=== PATIENT | male | born 1945 | race Two or more races ===

== ENCOUNTER → 2020-12-11 | Outpatient (CLI) | payer MEDICARE, MEDICAID ==
--- NOTE | 2020-12-12 09:02 | CARD ---
MR#: [id number] Date of Study: 12/11/2020 Ordering Physician: LOGAN SOTELO, Referring Physician: LOGAN SOTELO, Tech: Dorothea Read [facility] APPROVED REPORT EXAM: Two-dimensional and M-mode echocardiogram with Doppler and color Doppler. Other Information Quality : AverageHR: 71bpm INDICATION Cardiomyopathy Surgery/Intervention CABG: Date: 2017 Site: [facility] RISK FACTORS Diabetes 2D DIMENSIONS RVDd4.1 (2.9-3.5cm)Left Atrium(2D)3.7 (1.6-4.0cm) IVSd1.2 (0.7-1.1cm)Aortic Root(2D)3.8 (2.0-3.7cm) LVDd6.2 (3.9-5.9cm)LVOT Diameter2.0 (1.8-2.4cm) PWd1.2 (0.7-1.1cm)LVDs5.8 (2.5-4.0cm) FS (%) 6.3 %SV27.3 ml LVEF(%)13.9 (>50%) Aortic Valve AoV Peak Shyam.108.4cm/sAoV VTI23.0cm AO Peak GR.4.7mmHgLVOT Peak Shyam.92.9cm/s LVOT VTI 18.75cmAO Mean GR.3mmHg PRABHU (VMAX)2.51df3HWM (VTI)2.64cm2 AI P 1/2 Fmuu737ep Mitral Valve MV E Cmyowqef61.2cm/sMV DECEL [id number] MV A Pemvopvs773.1cm/sMV E Mean Gr.2mmHg MV UNN75ldN/A Ratio0.6 MVA (PHT)2.95cm2 TDI E/Lateral E'8.9E/Medial E'14.2 Pulmonary Valve PV Peak Noqoyfcj38.0cm/sPV Peak Grad.3mmHg Pulmonary Vein S1 Glqtfxnx73.8cm/sD2 Ezjwguwe87.8cm/s PVa [id number] LEFT VENTRICLE The Left Ventricle is mildly dilated. There is mild concentric left ventricular hypertrophy. The left ventricular systolic function is moderate to severely impaired. The Ejection Fraction is 30%. There is global hypokinesis of the left ventricle. Transmitral Doppler flow pattern is Grade I-abnormal rel axation pattern. RIGHT VENTRICLE The right ventricle is borderline dilated. There is normal right ventricular wall thickness. The righ t ventricular systolic function is normal. ATRIA The left atrium is mildly dilated. The right atrium is borderline dilated. The interatrial septum is intact with no evidence for an atrial septal defect or patent foramen ovale as noted on 2-D or Dopple r imaging. AORTIC VALVE The aortic valve is thickened but opens well. Doppler and Color Flow revealed trace aortic regurgitat ion. Calculated aortic valve area is 2.42 cm2 with maximum pressure gradient of 6 mmHg and mean press ure gradient of 3 mmHg. MITRAL VALVE The mitral valve is normal in structure and function. There is no evidence of mitral valve prolapse. There is no mitral valve stenosis. Doppler and Color-flow revealed trace mitral regurgitation. TRICUSPID VALVE The tricuspid valve is not well visualized. Doppler and Color Flow revealed trace tricuspid regurgita tion. There is no tricuspid valve stenosis. PULMONIC VALVE The pulmonic valve is not well visualized. Doppler and Color Flow revealed trace pulmonic valvular re gurgitation. GREAT VESSELS The aortic root is normal in size. The ascending aorta is Mildly dilated measuring 3.8 cm. The IVC is normal in size and collapses >50% with inspiration. PERICARDIAL EFFUSION There is no evidence of significant pericardial effusion. Critical Notification Critical Value: No <Conclusion> The left ventricular systolic function is moderate to severely impaired. The Ejection Fraction is 30%. Transmitral Doppler flow pattern is Grade I-abnormal relaxation pattern. Trace mitral regurgitation. Trace tricuspid regurgitation. There is no evidence of significant pericardial effusion. Signed by : Logan Sotelo, Electronically Approved : 12/12/2020 09:02:11
== END ==
LOC: ECHO 14:39
PROVIDERS: ATTEND Internal Medicine Cardiovascular Disease
DX: I25.5 Ischemic cardiomyopathy (principal); I51.7 Cardiomegaly
CPT/HCPCS: 93306

== ENCOUNTER 2021-02-25 09:06 | Observation (INO) | payer MEDICARE, MEDICAID ==
[~2021-02-25] VITALS: Ht 170.2 cm; Wt 104.5 kg
[~2021-02-25 09:06] MED LIST: IV RINGERS,LACTATED 1000ML 1,000 ML IV SCH
[2021-02-25 09:58] LABS: HEMATOCRIT 34.6 % (39.0-53.0); HEMOGLOBIN 11.9 g/dL (13.0-17.5); RED BLOOD COUNT 3.76 x10^6/uL (4.30-5.70); RED CELL DISTRIBUTION WIDTH 13.5 % (11.5-14.5); WHITE BLOOD COUNT 8.8 x10^3/uL (4.0-11.0)
[2021-02-25] MEDS ORDERED: VANCOMYCIN 1GM IVPB FOR OMNI 250 ML IRR ONE (10:00)
[2021-02-25] MEDS ORDERED: VANCOMYCIN 1GM IVPB FOR OMNI 250 ML IV ONE (10:00)
[2021-02-25 10:07] VITALS: BP 136/73
[2021-02-25 10:07] LABS: PROTHROMBIN TIME PATIENT 13.9 SEC (11.7-14.0)
[2021-02-25 10:28] LABS: CALCIUM 8.7 mg/dL (8.5-10.1); CREATININE 2.7 mg/dL (0.7-1.3); GFR 23.1; POTASSIUM 5.1 mmol/L (3.5-5.1)
[2021-02-25] MEDS ORDERED: VANCOMYCIN 1GM IVPB FOR OMNI 250 ML ONE (10:46)
[2021-02-25] MEDS ORDERED: LIDOCAINE 1% Multi-Dose 20 ML VIAL. ONE (10:48)
[2021-02-25] MEDS ORDERED: LIDOCAINE 2%/EPI 1:100,000 20 ML VIAL. ONE (10:48)
[2021-02-25] MEDS ORDERED: MIDAZOLAM HCL/PF 2 MG/2 ML VIAL. ONE ×2 (10:56)
[2021-02-25] MEDS ORDERED: fentaNYL PF VIAL 250 MCG/5 ML VIAL ONE (10:56)
[2021-02-25] MEDS ORDERED: KETAMINE HCL IN NACL, ISO-OSM 50 MG/5 ML SYRINGE ONE (10:56)
[2021-02-25] MEDS ORDERED: ASPI-630 PO (10:58)
[2021-02-25] MEDS ORDERED: IODIXANOL 320 MG/ML 100 ML VIAL. ONE (11:02)
[2021-02-25] MEDS ORDERED: CLOP75TA PO (11:07)
[2021-02-25] MEDS ORDERED: ATOR40TA59 PO (11:07)
[2021-02-25] MEDS ORDERED: CARV6.2511 PO (11:07)
[2021-02-25] MEDS ORDERED: CYCL10TA2 PO (11:14)
[2021-02-25] MEDS ORDERED: TORS20TA2 PO (11:14)
[2021-02-25] MEDS ORDERED: INSU100I27 SQ (11:14)
[2021-02-25] MEDS ORDERED: INSU100I17 SQ (11:14)
[2021-02-25] MEDS ORDERED: FAMO20TA5 PO (11:14)
[2021-02-25] MEDS ORDERED: SPIR25TA5 PO (11:14)
[2021-02-25] MEDS ORDERED: OMEG100021 PO (11:14)
[2021-02-25] MEDS ORDERED: LOSA25TA54 PO (11:14)
[2021-02-25] MEDS ORDERED: IODIXANOL 320 MG/ML 100 ML VIAL. IART ONE (11:15)
[2021-02-25] MEDS ORDERED: LIDOCAINE 2%/EPI 1:100,000 20 ML VIAL. IJ ONE (11:15)
[2021-02-25] MEDS ORDERED: CONTRAST GIVEN. MC PRN (11:30)
[2021-02-25] MEDS ORDERED: hydrALAZINE 20 MG/ML VIAL. ONE (11:37)
[2021-02-25] MEDS ORDERED: hydrALAZINE 20 MG/ML VIAL. IVP ONE (11:45)
[2021-02-25] MEDS ORDERED: LIDOCAINE 2% PF 5 ML VIAL. ONE (13:09)
[2021-02-25] MEDS ORDERED: PROPOFOL 10 MG/ML (20ML) VIAL. IV ONE (13:09)
[2021-02-25] MEDS ORDERED: INSULIN LISPRO 100 UNIT/ML 3ML VIAL for OP,RR ONLY. SQ PRN (13:45)
[2021-02-25] MEDS ORDERED: INSULIN LISPRO 100 UNIT/ML 3ML VIAL for OP,RR ONLY. SQ ONE (13:45)
[2021-02-25] MEDS ORDERED: ACETAMINOPHEN 325 MG TABLET. PO PRN (14:15)
--- NOTE | 2021-02-25 14:52 | RAD ---
EXAM: Chest, single view. HISTORY: Pacemaker placement. COMPARISON: None. FINDINGS: A frontal view of the chest is obtained. There is a cardiac pacemaker overlying expected po sition. There is no pneumothorax. There is cardiomegaly. There is elevation of the right hemidiaphrag m. There is diffuse interstitial prominence without fatou congestion. There are median sternotomy howard nges. IMPRESSION: 1. Cardiac pacemaker defibrillator overlying expected position. 2. Cardiomegaly and diffuse interstitial prominence. Electronically signed by: Sunitha Solorio MD (02/25/2021 2:50 PM) [id number]
--- NOTE | 2021-02-25 15:24 | CARD ---
MR#: [id number] Date of Study: 02/25/2021 Ordering Physician: LOGAN SOTELO, Referring Physician: LOGAN SOTELO, Tech: APPROVED REPORT EXAM Implantation of Biotronik biventricular implantable cardioverter defibrillator/cardiac resynchronizat ion therapy-defibrillation Defibrillation thresholds measurement at the time of implantation Sedation administered by Anasthesia team FLUORO TIME: 18.6 MIN DOSE: [id number] CONTRAST: 45CC VISI Estimated blood loss: 15 mL Specimen removed: none INDICATIONS Primary prevention of sudden cardiac in a patient with ischemic cardiomyopathy, NYHA Class II c hronic systolic heart failure with LVEF 30% and cardiac resynchronization therapy for prolonged QRS i nterval of 148 ms IMPLANTED DEVICES After explaining the risk, benefits and alternative options, informed consent was obtained for alysongabriele t. Patient was brought to the cardiac Agricultural Adviser and his left chest and shoulder were prepped and drap ed in the usual fashion. 30 cc of 2% lidocaine was infiltrated into the skin and subcutaneous tissue s for local anesthesia. Venous access was obtained in the left subclavian vein and 9 Algerian CS sheat h was inserted. Contrast injections were performed within the right atrium using MALORIE 2 catheter and coronary sinus o stium was engaged. The sheath was advanced over a 0.035 inch Glidewire into the coronary sinus. Francis ogram was obtained to identify appropriate target vessel for placement of the left ventricular lead. A 4 Algerian angled glide catheter was then used to selectively engage the posterolateral vein and a 0 .014 [facility] guidewire was advanced into it. A Biotronik quadripolar left ventricular le ad model Sentus ProMRI OTW QP serial #[id number] was then positioned in the posterolateral vein under f luoroscopy guidance. Venous access was again obtained in the left subclavian vein and 8 Algerian sheath was inserted. A OpenStudy bipolar active fixation right ventricular lead model Plexa ProMRI S DX lead with atrial dipole was advanced under fluoroscopic guidance and the tip was positioned in the right ventricular apex. The leads were secured into place and were attached to a Biotronik biventricular ICD/STRATEGIC BUSINESS DEVELOPMENT-D generator model Acticor 7HF-T QP, serial #[id number]. This was placed in the pocket that was subsequently closed in 3 layers. Hemostasis was secured. Ventricular fibrillation was then induced to check the defibrillation threshold. Patient successfull y converted to sinus rhythm with 30 J shock therapy. At the end of procedure, the left ventricular l ead showed a sensing amplitude of 22 mV, impedance of 600 ohms and a threshold of 1.0 V. The right v entricular lead showed a sensing amplitude of 24 mV, impedance of 680 ohms and a threshold of 0.4 V. The atrial dipole showed sensing amplitude of 6.0 for the P wave. Patient tolerated the procedure w ell. There were no immediate complications. CONCLUSION Successful implantation of Biotronik biventricular ICD/STRATEGIC BUSINESS DEVELOPMENT-D for primary prevention of sudden cardiac and cardiac resynchronization therapy in a patient with ischemic cardiomyopathy/chronic systol ic heart failure and cardiac dyssynchrony as evidenced by prolonged QRS interval. Defibrillation thr esholds were measured at the time of implantation. Signed by : Logan Sotelo, Electronically Approved : 02/25/2021 15:23:17
[2021-02-25 16:25] VITALS: BP 159/60
[2021-02-25 16:30] VITALS: BP 159/60
[2021-02-25] MEDS ORDERED: DEXTROSE 50% 25 GM / 50ML DISP.SYRIN. IV PRN (17:00)
[2021-02-25] MEDS ORDERED: CARVEDILOL 6.25 MG TABLET. PO SCH (17:00)
[2021-02-25 17:25] VITALS: BP 173/81
[2021-02-25] MEDS: INSULIN LISPRO 300 UNITS/3 ML VIAL. SQ SCH (17:33)
[2021-02-25 19:49] VITALS: BP 165/81
[2021-02-25] MEDS ORDERED: ATORVASTATIN CALCIUM 40 MG TABLET. PO SCH (21:00)
[2021-02-25] MEDS ORDERED: FAMOTIDINE 20 MG TABLET. PO SCH (21:00)
[2021-02-25] MEDS: CYCLOBENZAPRINE 10 MG TABLET. PO SCH (21:02)
[2021-02-25] MEDS ORDERED: SACU1TAB PO (21:07)
--- NOTE | 2021-02-25 21:10 | NUR ---
Daughter Nimco called and gave update on Patient home medications she had told Kylie SMITH she would.
[2021-02-25 22:46] VITALS: BP 139/59
[2021-02-26] MEDS ORDERED: VANCOMYCIN 1 GM in IV DEXTROSE 5% 250 ML IV ONE (01:00)
[2021-02-26 07:00] VITALS: BP 123/54
[2021-02-26 07:04] LABS: CALCIUM 8.5 mg/dL (8.5-10.1); CREATININE 2.5 mg/dL (0.7-1.3); GFR 25.2
[2021-02-26] MEDS: CYCLOBENZAPRINE 10 MG TABLET. PO SCH (08:47)
[2021-02-26] MEDS: INSULIN LISPRO 300 UNITS/3 ML VIAL. SQ SCH ×2 (08:56→12:02)
[2021-02-26] MEDS ORDERED: INSULIN GLARGINE SYRINGE. SQ SCH (09:00)
[2021-02-26] MEDS ORDERED: SPIRONOLACTONE 25 MG TABLET PO SCH (09:00)
[2021-02-26] MEDS ORDERED: ASPIRIN CHEWABLE 81 MG TABLET. PO SCH (09:00)
[2021-02-26] MEDS ORDERED: TORSEMIDE 20 MG TABLET. PO SCH (09:00)
[2021-02-26] MEDS ORDERED: CLOPIDOGREL BISULFATE 75 MG TABLET PO SCH (09:00)
[2021-02-26] MEDS ORDERED: OMEGA-3 FATTY ACIDS/FISH OIL 1,000 MG CAPSULE. PO SCH (09:00)
[2021-02-26] MEDS ORDERED: LOSARTAN POTASSIUM 25 MG TABLET. PO SCH (09:00)
--- NOTE | 2021-02-26 10:05 | RAD ---
EXAM: Chest, 2 views. HISTORY: Pacemaker placement. COMPARISON: 02/25/2021 FINDINGS: 2 views of the chest are obtained. There is a cardiac pacemaker catheter in expected positi on. There is no pneumothorax. There is no infiltrate or pleural effusion. There is a stable enlarged cardiac silhouette and evidence of prior CABG. There is stable elevation/eventration of the right hem idiaphragm. IMPRESSION: 1. Cardiac pacemaker similar in expected position. 2. Stable prominent cardiac silhouette. Electronically signed by: Sunitha Solorio MD (02/26/2021 10:02 AM) [id number]
[2021-02-26 10:46] VITALS: BP 145/57
[2021-02-26 10:52] VITALS: BP 145/57
--- NOTE | 2021-02-26 11:10 | PDOC3 ---
MAXIMO MORALES PRESSURE CONTROL SUPERVISOR 02/26/21 1110: Discharge Summary Visit Information Date of Admission: Feb 25, 2021 Date of Discharge: Feb 26, 2021 Admitting Diagnosis: ICM, Chronic systolic CHF, HTN, DM2, HLP, CKD3-4 Final Diagnosis ICM, Chronic systolic CHF, HTN, DM2, HLP, CKD3-4, S/P CHAUFFEUR MOTORBUS-D in situ Brief Hospital Course Allergies Allergies Coded Allergies Type Severity Reaction Last Updated Verified Penicillins Allergy Intermediate 02/25/21 Yes Vital Signs Vital Signs Date Time Temp Pulse Resp B/P (MAP) Pulse Ox O2 Delivery O2 Flow Rate FiO2 02/26/21 10:46 97.6 80 18 145/57 (86) 97 Room Air 97.6 Lab Results Laboratory Tests Test 02/25/21 09:50 02/25/21 13:34 02/25/21 15:43 02/25/21 17:24 White Blood Count 8.8 x10^3/uL (4.0-11.0) Red Blood Count 3.76 x10^6/uL (4.30-5.70) Hemoglobin 11.9 g/dL (13.0-17.5) Hematocrit 34.6 % (39.0-53.0) Mean Corpuscular Volume 92 fL (79-100) Mean Corpuscular Hemoglobin 32 pg (25-35) Mean Corpuscular Hemoglobin Concent 34 g/dL (31-37) Red Cell Distribution Width 13.5 % (11.5-14.5) Platelet Count 176 x10^3/uL (140-400) Prothrombin Time 13.9 SEC (11.7-14.0) Prothromb Time International Ratio 1.1 (0.8-1.1) Sodium Level 139 mmol/L (136-145) Potassium Level 5.1 mmol/L (3.5-5.1) Chloride Level 104 mmol/L (98-107) Carbon Dioxide Level 21 mmol/L (21-32) Anion Gap 14 (6-14) Blood Urea Nitrogen 73 mg/dL (8-26) Creatinine 2.7 mg/dL (0.7-1.3) Estimated GFR (Cockcroft-Gault) 23.1 Glucose Level 250 mg/dL (70-99) Calcium Level 8.7 mg/dL (8.5-10.1) Glucose (Fingerstick) 292 mg/dL (70-99) 287 mg/dL (70-99) 239 mg/dL (70-99) Test 02/25/21 20:42 02/26/21 04:30 02/26/21 06:55 Glucose (Fingerstick) 270 mg/dL (70-99) 198 mg/dL (70-99) Sodium Level 140 mmol/L (136-145) Potassium Level 5.0 mmol/L (3.5-5.1) Chloride Level 108 mmol/L (98-107) Carbon Dioxide Level 20 mmol/L (21-32) Anion Gap 12 (6-14) Blood Urea Nitrogen 66 mg/dL (8-26) Creatinine 2.5 mg/dL (0.7-1.3) Estimated GFR (Cockcroft-Gault) 25.2 Glucose Level 187 mg/dL (70-99) Calcium Level 8.5 mg/dL (8.5-10.1) Laboratory Tests Test 02/25/21 13:34 02/25/21 15:43 02/25/21 17:24 02/25/21 20:42 Glucose (Fingerstick) 292 mg/dL (70-99) 287 mg/dL (70-99) 239 mg/dL (70-99) 270 mg/dL (70-99) Test 02/26/21 04:30 02/26/21 06:55 Sodium Level 140 mmol/L (136-145) Potassium Level 5.0 mmol/L (3.5-5.1) Chloride Level 108 mmol/L (98-107) Carbon Dioxide Level 20 mmol/L (21-32) Anion Gap 12 (6-14) Blood Urea Nitrogen 66 mg/dL (8-26) Creatinine 2.5 mg/dL (0.7-1.3) Estimated GFR (Cockcroft-Gault) 25.2 Glucose Level 187 mg/dL (70-99) Calcium Level 8.5 mg/dL (8.5-10.1) Glucose (Fingerstick) 198 mg/dL (70-99) Brief Hospital Course Mr. Wright is a 75 yo male admitted for planned CHAUFFEUR MOTORBUS-D placement. He has ICM, CAD, cardiac dysynchrony and chronic systolic CHF. He had a successful implantation of Biotronik biventricular ICD/CHAUFFEUR MOTORBUS-D for primary prevention of sudden cardiac and cardiac resynchronization therapy for primary pre vention of sudden cardiac . He is NYHA Class II chronic systolic heart failure with LVEF 30% and needing cardiac resynchronization therapy for prolonged QRS interval of 148 ms. He is AOX3, LSCTA and no significant rhythm ectopies. He tolerated the procedure well. Left chest surgical incision intact with steristrips, no erythema, swelling. No immediate complications. Repeat int errogation revealed normal function. VSS. Continue current home medications. Follow up in office as scheduled. Follow up with nephrology as an outpt. Discharge Information Condition at Discharge: Stable Follow Up: Weeks (2) Disposition/Orders: D/C to Home Scheduled Aspirin (Aspirin) 81 Mg Tab.chew, 1 TAB PO DAILY for rx, #30 Ref 3 (Reported) Entered as Reported by: RYAN PRIETO on 02/25/21 1058 Last Taken: Unknown Dose on 02/24/21 Last Action: Continued on 02/25/211648 by KASSIE BISHOP RN Atorvastatin Calcium (Atorvastatin Calcium) 40 Mg Tablet, 1 TAB PO QHS for rx, #90 Ref 3 (Reported) Entered as Reported by: RYAN PRIETO on 02/25/21 1107 Last Taken: Unknown Dose on 02/24/21 Last Action: Continued on 02/25/211648 by KASSIE BISHOP RN Clopidogrel Bisulfate (Clopidogrel) 75 Mg Tablet, 1 TAB PO DAILY for rx, #90 Ref 1 (Reported) Entered as Reported by: RYAN PRIETO on 02/25/21 1107 Last Taken: Unknown Dose on 02/24/21 Last Action: Continued on 02/25/211648 by KASSIE BISHOP, LUIS Insulin Aspart (Novolog Flexpen) 100 Unit/1 Ml Insuln.pen, 1 UNIT SQ BIDAC for rx, (Reported) Entered as Reported by: RYAN PRIETO on 02/25/21 111 Last Taken: Unknown Dose on 02/24/21 Last Action: Edited on 02/25/212109 by FARIBA LAW Insulin Detemir (Levemir Flextouch) 100 Unit/1 Ml Insuln.pen, 20 UNIT SQ DAILY for rx, (Reported) Entered as Reported by: RYAN PRIETO on 02/25/21 111 Last Taken: Unknown Dose on 02/24/21 Last Action: Converted on 02/25/211648 by KASSIE BISHOP RN [place]-3/Dha/Epa/Fish Oil (Fish Oil 1,000 mg Softgel) 1,000 Mg Capsule, 1,000 MG PO DAILY for rx, (Reported) Entered as Reported by: RYAN PRIETO on 02/25/211113 Last Taken: Unknown Dose on 02/24/21 Last Action: Converted on 02/25/211648 by KASSIE BISHOP RN Sacubitril/Valsartan (Entresto 24 mg-26 mg Tablet) 1 Each Tablet, 1 EACH PO DAILY for heart failure, (Reported) Entered as Reported by: FARIBA LAW on 02/25/212106 Last Action: New Order on 02/25/212106 by FARIBA LAW Torsemide (Torsemide) 20 Mg Tablet, 1 TAB PO DAILY for rx, #90 Ref 1 (Reported) Entered as Reported by: RYAN PRIETO on 02/25/211113 Last Taken: Unknown Dose on 02/24/21 Last Action: Edited on 02/25/212106 by FARIBA LAW Scheduled PRN Cyclobenzaprine Hcl (Cyclobenzaprine Hcl) 10 Mg Tablet, 1 TAB PO TID PRN for MUSCLE PAIN, #90 (Reported) Entered as Reported by: RYAN PRIETO on 02/25/211113 Last Taken: Unknown Dose on 02/24/21 Last Action: Edited on 02/25/212106 by FARIBA LAW Famotidine (Famotidine) 20 Mg Tablet, 20 MG PO HS PRN for INDIGESTION, (Reported) Entered as Reported by: RYAN PRIETO on 02/25/211113 Last Taken: Unknown Dose on 02/24/21 Last Action: Edited on 02/25/212106 by FARIBA LAW Discontinued Medications Carvedilol (Carvedilol ) 6.25 Mg Tablet, 6.25 MG PO BIDWMEALS for CARDIAC, (Reported) Entered as Reported by: RYAN PRIETO on 02/25/211106 Last Taken: Unknown Dose on 02/24/21 Last Action: Discontinued on 02/25/211815 by KASSIE BISHOP RN Losartan Potassium (Losartan Potassium ) 25 Mg Tablet, 25 MG PO DAILY for HYPERTENSION, (Reported) Entered as Reported by: RYAN PRIETO on 02/25/21 111 Last Taken: Unknown Dose on 02/24/21 Last Action: Discontinued on 02/25/211815 by KASSIE BISHOP RN Spironolactone (Spironolactone) 25 Mg Tablet, 1 TAB PO DAILY for rx, #90 Ref 1 (Reported) Entered as Reported by: RYAN PRIETO on 02/25/21 111 Last Taken: Unknown Dose on 02/24/21 Last Action: Continued on 02/25/21 1649 by KASSIE BISHOP RN Patient Instructions Patient Instructions Must know & what to expect after device implant: 1. Your surgical dressing should be removed prior to discharge from the hospital, but allow the steri- strips to fall off naturally. 2. Activity restrictions: DO NOT raise arm above shoulder level, lift anything heavier than a gallon of milk, and no push or pull motions such as vacuuming/lawn mowing, no swinging motions (golf), etc for 4 weeks. 3. It is OK to use a cell phone or other electronic devices just be sure you do not store it in a breast pocket on the side where the device was placed. 4. Device will be interrogated prior to your discharge from the hospital and then every 3 months for defibrillators and every 6 months for pacemakers. You may be asked to have your device checked remotely from home as well, but this will depend on your particular physicians preference. 5. You may remove the arm immobilizer the day after device placement. Wear the arm immobilizer/splint at night (during sleep times) for 2 week to prevent unintended arm movement that can cause lead dislodgement. 6. Do not drive for one week as the task of driving may lead to unintended arm motion that may cause lead dislodgement. The seatbelt will also rub against the incision site & cause irritation. 7. It is our recommendation that you utilize Tylenol at home for pain control. You need to call our office if you are having uncontrollable pain at the incision site. 8. Keep your incision clean and dry. It is OK to shower. DO NOT submerge in bath, pool, or hot tub, until cleared by your doctor, as this could lead to increase risk of infection.. It is OK to use regular soap just do not scrub the incision site. Water spray from shower should not directly hit the incision. Be sure to blot dry not rub. 9. Inspect your incision daily. If you notice any increased redness, swelling, or drainage, or if you start running a fever, call the office immediately. The number is [phone]. 10. For women, if you need to protect against irritation from the bra straps, you can place a piece of gauze over the incision site for cushion. Please be sure to tape it loosely to allow air to the site & remove the gauze when you remove the bra. 11. Be sure to carry your device identification information card in your wallet/purse at all times. 12. It is OK to go through security at the airport with your device, but be sure to let the TSA know prior to proceeding as the security settings change depending on varying factors. Please do whatever is requested by security at that time. 13. Some of the newer devices may be MRI compatible but, currently, the use of these devices is not widespread, so you likely will not be able to have an MRI. Please clarify this with your physician. Special instructions for defibrillator patients: If your device recognizes a rhythm that requires treatment with a shock, you will most likely feel the shock. This is usually not a subtle feeling and it is uncomfortable. Please follow these steps if you receive a shock: Call the office if you receive one shock. Go to the emergency room if you receive two consecutive shocks- please have someone drive you & call 911 if nobody is available- DO NOT drive yourself. Call 911 if you receive more than 2 consecutive shocks. If at any time, you feel lightheaded or dizzy/faint, stop what you are doing & lie down immediately. If you are driving, get to the side of the road quickly, turn your car off & call 911 on your cell phone. DO NOT continue to drive as this may cause an accident that seriously injures yourself &/or others. Call the office at [phone] for any questions or concerns. Justicifation of Admission Dx: Justifications for Admission: Justification of Admission Dx: Yes LOGAN HOLLIDAY MD 02/26/212037: Discharge Summary Brief Hospital Course Brief Hospital Course Patient seen and examined. Agree with RECORDS SPECIALIST's assessment and plan. s/p Biventricular ICD/CHAUFFEUR MOTORBUS-D implantation yesterday for primary prevention of SCD and CHAUFFEUR MOTORBUS secondary to ischemic cardiomyopathy and cardiac dyssynchrony. CXR without pneumothorax, device interrogation normal and incision looks good. Follow up with our office as scheduled. Discharge Information Scheduled Aspirin (Aspirin) 81 Mg Tab.chew, 1 TAB PO DAILY for rx, #30 Ref 3 (Reported) Entered as Reported by: RYAN PRIETO on 02/25/21 1058 Last Taken: Unknown Dose on 02/24/21 Last Action: Continued on 02/25/211648 by KASSIE BISHOP RN Atorvastatin Calcium (Atorvastatin Calcium) 40 Mg Tablet, 1 TAB PO QHS for rx, #90 Ref 3 (Reported) Entered as Reported by: RYAN PRIETO on 02/25/211106 Last Taken: Unknown Dose on 02/24/21 Last Action: Continued on 02/25/211648 by KASSIE BISHOP RN Clopidogrel Bisulfate (Clopidogrel) 75 Mg Tablet, 1 TAB PO DAILY for rx, #90 Ref 1 (Reported) Entered as Reported by: RYAN PRIETO on 02/25/211106 Last Taken: Unknown Dose on 02/24/21 Last Action: Continued on 02/25/211648 by KASSIE BISHOP RN Insulin Aspart (Novolog Flexpen) 100 Unit/1 Ml Insuln.pen, 1 UNIT SQ BIDAC for rx, (Reported) Entered as Reported by: RYAN PRIETO on 02/25/211113 Last Taken: Unknown Dose on 02/24/21 Last Action: Edited on 02/25/212109 by FARIBA LAW Insulin Detemir (Levemir Flextouch) 100 Unit/1 Ml Insuln.pen, 20 UNIT SQ DAILY for rx, (Reported) Entered as Reported by: RYAN PRIETO on 02/25/211113 Last Taken: Unknown Dose on 02/24/21 Last Action: Converted on 02/25/211648 by KASSIE BISHOP RN [place]-3/Dha/Epa/Fish Oil (Fish Oil 1,000 mg Softgel) 1,000 Mg Capsule, 1,000 MG PO DAILY for rx, (Reported) Entered as Reported by: RYAN PRIETO on 02/25/211113 Last Taken: Unknown Dose on 02/24/21 Last Action: Converted on 02/25/211648 by KASSIE BISHOP RN Sacubitril/Valsartan (Entresto 24 mg-26 mg Tablet) 1 Each Tablet, 1 EACH PO DAILY for heart failure, (Reported) Entered as Reported by: FARIBA LAW on 02/25/212106 Last Action: New Order on 02/25/212106 by FARIBA LAW Torsemide (Torsemide) 20 Mg Tablet, 1 TAB PO DAILY for rx, #90 Ref 1 (Reported) Entered as Reported by: RYAN PRIETO on 02/25/211113 Last Taken: Unknown Dose on 02/24/21 Last Action: Edited on 02/25/212106 by FARIBA LAW Scheduled PRN Cyclobenzaprine Hcl (Cyclobenzaprine Hcl) 10 Mg Tablet, 1 TAB PO TID PRN for MUSCLE PAIN, #90 (Reported) Entered as Reported by: RYAN PRIETO on 02/25/211113 Last Taken: Unknown Dose on 02/24/21 Last Action: Edited on 02/25/212106 by FARIBA LAW Famotidine (Famotidine) 20 Mg Tablet, 20 MG PO HS PRN for INDIGESTION, (Reported) Entered as Reported by: RYAN PRIETO on 02/25/211113 Last Taken: Unknown Dose on 02/24/21 Last Action: Edited on 02/25/212106 by FARIBA LAW Discontinued Medications Carvedilol (Carvedilol ) 6.25 Mg Tablet, 6.25 MG PO BIDWMEALS for CARDIAC, (Reported) Entered as Reported by: RYAN PRIETO on 02/25/211106 Last Taken: Unknown Dose on 02/24/21 Last Action: Discontinued on 02/25/211815 by KASSIE BISHOP RN Losartan Potassium (Losartan Potassium ) 25 Mg Tablet, 25 MG PO DAILY for HYPERTENSION, (Reported) Entered as Reported by: RYAN PRIETO on 02/25/211113 Last Taken: Unknown Dose on 02/24/21 Last Action: Discontinued on 02/25/211815 by KASSIE BISHOP RN Spironolactone (Spironolactone) 25 Mg Tablet, 1 TAB PO DAILY for rx, #90 Ref 1 (Reported) Entered as Reported by: RYAN PRIETO on 02/25/211113 Last Taken: Unknown Dose on 02/24/21 Last Action: Continued on 02/25/21 1649 by KASSIE BISHOP, MAXIMO ESTRELLA APRN Feb 26, 2021 11:10 LOGAN HOLLIDAY MD Feb 26, 2021 20:38
--- NOTE | 2021-02-26 12:53 | NUR ---
Discharge Note: [facility] Discharge instructions and discharge home medications reviewed with Patient and a copy given. All questions have been answered and understanding verbalized. The following instructions and handouts were given: post pacemaker discharge instructions, pacemaker insertion, implantable cardiac defibrillator Patient discharged to home with daughter via wheelchair.
== END 2021-02-26 12:44 | disposition home or self-care (01) ==
LOC: SURG 09:06 → 2 SOUTH 15:23
PROVIDERS: ADMIT Internal Medicine Cardiovascular Disease; ATTEND Internal Medicine Cardiovascular Disease
DX: I25.5 Ischemic cardiomyopathy (principal); I13.0 Hypertensive heart and chronic kidney disease with heart failure and stage 1 through stage 4 chronic kidney disease, or unspecified chronic kidney disease; I50.22 Chronic systolic (congestive) heart failure; N18.4 Chronic kidney disease, stage 4 (severe); E11.22 Type 2 diabetes mellitus with diabetic chronic kidney disease; I25.10 Atherosclerotic heart disease of native coronary artery without angina pectoris; E78.5 Hyperlipidemia, unspecified; Z79.02 Long term (current) use of antithrombotics/antiplatelets; Z79.4 Long term (current) use of insulin; Z79.82 Long term (current) use of aspirin; Z79.899 Other long term (current) drug therapy; Z90.49 Acquired absence of other specified parts of digestive tract; Z95.1 Presence of aortocoronary bypass graft; Z98.890 Other specified postprocedural states
CPT/HCPCS: 33225; 33249; 36415; 71045; 71046; 80048; 82962; 85027; 85610; 93641; 96365; 96366; 96375; C1769; C1882; G0378; G0379; J0360; J1815; J2250; J2704; J3010; J3370; J3490; J7060; Q9967